=== PATIENT | male | born 1995 | race Caucasian/White ===

== ENCOUNTER 2017-11-01 22:20 | Emergency (ER) | payer SELFPAY ==
[2017-11-01] MEDS ORDERED: ALUM & MAG HYDROX-SIMETHICONE 30 ML, LIDOCAINE VISCOUS 2% 15 ML PO ONE ×2 (22:38)
[2017-11-01] MEDS ORDERED: LIDOCAINE HCL 2% (MOUTH-THROAT) 15 ML UD ONE (22:40)
[2017-11-01] MEDS ORDERED: ALUM & MAG HYDROX-SIMETHICONE 30 ML UD ONE (22:40)
--- NOTE | 2017-11-01 22:53 | RAD ---
EXAM DESCRIPTION: Chest,2 Views CLINICAL HISTORY: chest pain COMPARISON: None. FINDINGS: Two views of the chest are submitted. Cardiac silhouette appears normal. No focal parenchymal or pleural disease. No acute bony abnormality. There is no significant pulmonary vascular engorgement. IMPRESSION: No evidence of acute cardiopulmonary disease. Electronically signed by: Pietro Paulson 11/01/2017 10:52 PM [employer]
[2017-11-01] MEDS ORDERED: POTASSIUM CHLORIDE INJ 40 MEQ 40 MEQ in SODIUM CHLORIDE 0.9% 250ML 250 ML IVPB ONE (23:03)
[2017-11-01] MEDS ORDERED: POTASSIUM CHLORIDE ELIXIR 20 MEQ/15 ML UD PO ONE (23:03)
[2017-11-01] MEDS ORDERED: SODIUM CHLORIDE 0.9% 1000ML 1,000 ML IVS ONE (23:03)
[2017-11-01] MEDS ORDERED: ACETAMINOPHEN 325 MG TAB PO ONE (23:05)
[2017-11-01] MEDS ORDERED: OSELTAMIVIR 75 MG CAP PO ONE (23:05)
[2017-11-01] MEDS ORDERED: IBUPROFEN 200 MG TAB PO ONE (23:05)
[2017-11-01] MEDS ORDERED: SODIUM CHLORIDE 0.9% 250ML 250 ML ONE (23:08)
[2017-11-01] MEDS ORDERED: POTASSIUM CHLORIDE 40mEq 20ML VIAL ONE (23:08)
[2017-11-02 00:24] VITALS: TEMP 98.2
--- NOTE | 2017-11-02 05:16 | ED.PDOC ---
History of Present Illness - General Chief Complaint: Chest Pain/[place] Stated Complaint: chest pressure Time Seen by Provider: 11/01/17 22:32 Source: patient Exam Limitations: no limitations - History of Present Illness Initial Comments: the patient is a 42-year-old male presenting to the emergency room secondary to primarily a fever or chest pain. He feels like he is having central chest tightness and squeezing that is worse intermittently. He does have anterior chest wall discomfort to palpation. He is quite anxious. He has been diaphoretic. He has had a mild sore throat and a mild runny nose. Mild nausea but no vomiting. He has had some generalized myalgias. Flu is rampant in the community. Timing/Duration: 4-6 hours Severity: moderate Improving Factors: nothing Worsening Factors: nothing Associated Symptoms: chest pain, cough, fever/chills, loss of appetite, malaise , weakness Allergies/Adverse Reactions: Allergies NO KNOWN ALLERGY Allergy (Verified 11/01/17 22:38) Home Medications: Ambulatory Orders Oseltamivir Phosphate [Tamiflu] 75 mg PO DAILY #30 cap 11/02/17 Potassium Chloride Tab [Micro-K] 10 meq PO BID #10 tab 11/02/17 Review of Systems - Review of Systems Constitutional: States: chills, diaphoresis, fever, malaise EENTM: States: nose congestion, throat pain Respiratory: States: cough. Denies: short of breath, wheezing Cardiology: States: chest pain. Denies: edema, palpitations, syncope Gastrointestinal/Abdominal: States: nausea - mild Genitourinary: States: no symptoms reported Musculoskeletal: States: other - generalized myalgias Skin: States: no symptoms reported Neurological: States: headache - mild Endocrine: States: no symptoms reported All other Systems: No Change from Baseline Past Medical History (General) - Patient Medical History Hx Seizures: No Hx Asthma: Yes Hx Cardiac Disorders: No Hx Congestive Heart Failure: No Hx Hypertension: No Hx Diabetes: No Surgical History: other - Vaccination History Hx Tetanus, Diphtheria Vaccination: No Hx Influenza Vaccination: No Hx Pneumococcal Vaccination: No - Social History Hx Tobacco Use: Yes Hx Alcohol Use: Yes - occ Family Medical History - Family History Mother Living Status: Still Living Hx Family Hypertension: Yes Hx Cardiac Disease: Yes Physical Exam - Physical Exam General Appearance: Alert, No apparent distress, Other - diaphoretic Eye Exam: bilateral normal Ears, Nose, Throat: hearing grossly normal, nasal congestion, pharyngeal erythema Neck: full range of motion, supple Respiratory: lungs clear, normal breath sounds, no respiratory distress, no accessory muscle use Cardiovascular/Chest: normal peripheral pulses, regular rate, rhythm, no edema, tachycardia Peripheral Pulses: radial,right: 2+, radial,left: 2+ Gastrointestinal/Abdominal: non tender, soft Rectal Exam: deferred Back Exam: normal inspection, no CVA tenderness Extremity: normal range of motion, non-tender, normal inspection, no pedal edema , normal capillary refill Neurologic: health editor II-XII nml as tested, alert, normal mood/affect, oriented x 3 Skin Exam: diaphoresis Comments: Vital Signs - 8 hr 11/01/17 11/01/17 11/01/17 22:27 22:30 23:23 Temperature 98.9 F Pulse Rate 112 H 112 H 85 Pulse Rate [ 112 H 110 H 83 left] Respiratory 20 20 Rate Blood Pressure 144/89 115/75 [left] O2 Sat by Pulse 100 98 Oximetry 11/02/17 11/02/17 11/02/17 00:22 01:20 02:15 Temperature 98.2 F Pulse Rate 89 89 89 Pulse Rate [ 89 82 78 left] Respiratory 20 20 20 Rate Blood Pressure 106/64 122/65 129/69 [left] O2 Sat by Pulse 97 97 97 Oximetry 11/02/17 03:38 Temperature Pulse Rate 89 Pulse Rate [ 65 left] Respiratory 20 Rate Blood Pressure 122/70 [left] O2 Sat by Pulse 97 Oximetry Progress - Progress Progress: 11/02/17 05:18 the patient's 22-year-old male presenting to the emergency room primarily due to chest pain and also with multiple concomitant symptoms. He has tested positive for flu and he also has some significant hypokalemia. He has been started on Tamiflu and has received an IV and oral dose of potassium. His repeat potassium has gone from 2.8 up to 4.2. He is feeling better after the potassium in the IV fluids. He needs to keep himself well hydrated. He will be written for potassium chloride 10 mEq per day. He needs to be rechecked in 2-3 weeks. ER warnings were given for any significant worsening. He will be written for the Tamiflu for the flu. He should follow-up with his primary care doctor in 2-3 weeks for reevaluation if he is doing well, or return sooner if needed. - Results/Orders Results/Orders: 11/01/17 22:36 Telemetry .CONTINUOUS normal sinus rhythm Chest x-ray shows no acute pathology. No infiltrate. No cardiomegaly. the patient did test positive for flu 11/01/17 22:45 EKG STAT normal sinus rhythm at a rate of 96 bpm. Normal axis. No acute ST segment changes concerning for ischemia. Normal R-wave progression. Normal QT interval. Laboratory Results - last 24 hr 11/01/17 11/01/17 11/01/17 22:40 22:40 22:40 WBC 5.7 RBC 5.07 Hgb 13.6 L Hct 40.7 L MCV 80.3 MCH 26.8 L MCHC 33.3 RDW 15.0 H Plt Count 155 MPV 8.5 Absolute Neuts (auto) 4.20 Absolute Lymphs (auto) 0.90 L Absolute Monos (auto) 0.50 Absolute Eos (auto) 0.00 Absolute Basos (auto) 0.00 Neutrophils % 74.7 Lymphocytes % 15.6 L Monocytes % 9.3 H Eosinophils % 0.1 L Basophils % 0.3 D-Dimer, Quantitative < 230 Sodium 137 Potassium 2.8 L Chloride 101 Carbon Dioxide 24 Anion Gap 14.8 BUN 9 Creatinine 0.89 BUN/Creatinine Ratio 10.1 Random Glucose 69 L Serum Osmolality 270.9 L Calcium 8.9 Magnesium 1.8 Total Bilirubin 0.6 AST 18 ALT 13 Alkaline Phosphatase 67 Creatine Kinase 115 CK-MB (CK-2) 1.6 CK-MB (CK-2) % Not Reportable Troponin I < 0.02 B-Natriuretic Peptide 7.9 Serum Total Protein 8.7 H Albumin 4.0 Globulin 4.7 H Albumin/Globulin Ratio 0.9 L TSH 3.08 Group A Strep DNA 11/01/17 11/02/17 23:04 04:15 WBC RBC Hgb Hct MCV MCH MCHC RDW Plt Count MPV Absolute Neuts (auto) Absolute Lymphs (auto) Absolute Monos (auto) Absolute Eos (auto) Absolute Basos (auto) Neutrophils % Lymphocytes % Monocytes % Eosinophils % Basophils % D-Dimer, Quantitative Sodium Potassium 4.2 Chloride Carbon Dioxide Anion Gap BUN Creatinine BUN/Creatinine Ratio Random Glucose Serum Osmolality Calcium Magnesium Total Bilirubin AST ALT Alkaline Phosphatase Creatine Kinase 93 CK-MB (CK-2) 0.9 CK-MB (CK-2) % Not Reportable Troponin I < 0.02 B-Natriuretic Peptide Serum Total Protein Albumin Globulin Albumin/Globulin Ratio TSH Group A Strep DNA Negative Departure - Departure Clinical Impression: Hypokalemia, Influenza A Disposition: Discharge to Home or Self Care Condition: Fair Departure Forms: ED Discharge - Pt. Copy, Patient Portal Self Enrollment Instructions: DI for Hypokalemia, Influenza Diet: regular diet Activity: increase activity as tolerated Referrals: YOLANDA PELLETIER [Primary Care Provider] - 1-2 Weeks Prescriptions: Oseltamivir Phosphate [Tamiflu] 75 mg PO DAILY #30 cap Potassium Chloride Tab [Micro-K] 10 meq PO BID #10 tab Home Medications: Ambulatory Orders Oseltamivir Phosphate [Tamiflu] 75 mg PO DAILY #30 cap 11/02/17 Potassium Chloride Tab [Micro-K] 10 meq PO BID #10 tab 11/02/17 Additional Instructions: the patient's 22-year-old male presenting to the emergency room primarily due to chest pain and also with multiple concomitant symptoms. He has tested positive for flu and he also has some significant hypokalemia. He has been started on Tamiflu and has received an IV and oral dose of potassium. His repeat potassium has gone from 2.8 up to 4.2. He is feeling better after the potassium in the IV fluids. He needs to keep himself well hydrated. He will be written for potassium chloride 10 mEq per day. He needs to be rechecked in 2-3 weeks. ER warnings were given for any significant worsening. He will be written for the Tamiflu for the flu. He should follow-up with his primary care doctor in 2-3 weeks for reevaluation if he is doing well, or return sooner if needed.
[2017-11-02 05:34] VITALS: BP 125/65; O2SAT 99
== END 2017-11-02 05:37 | disposition home or self-care (01) ==
LOC: ER 22:20
DX: J10.1 Influenza due to other identified influenza virus with other respiratory manifestations (principal); E87.6 Hypokalemia; Z87.891 Personal history of nicotine dependence
CPT/HCPCS: 36415; 71046; 80053; 82550; 82553; 83735; 83880; 84132; 84443; 84484; 85025; 85379; 87070; 87502; 87651; 93005; J3480; J7030; J7050

== ENCOUNTER 2019-04-21 08:55 | Emergency (ER) | payer SELFPAY ==
[2019-04-21 09:04] VITALS: TEMP 97.9
--- NOTE | 2019-04-21 09:14 | ED.PDOC ---
History of Present Illness - General Chief Complaint: Abdominal Pain Stated Complaint: abdominal pain,vomiting Time Seen by Provider: 04/21/19 09:14 Information Source: patient Exam Limitations: no limitations - History of Present Illness Initial Comments: Roberto Chavez 23 y/o male came to ER brought by Family with squeezing abdominal pain early this AM;stated had started as one episode of N/V yesterday able to eat last night without incident and had solid BM early this am but woke up with squeezing lower abdominal pain this am denies hematuria ,dysuria,hematemesis,melena. Abdominal Pain Onset Location: suprapubic Pain Radiation: no radiation Quality: moderate, sharpness, steady Timing/Duration: 4-6 hours Improving Factors: nothing Worsening Factors: nothing Associated Symptoms: other - see hpi Review of Systems - Review of Systems Constitutional: States: no symptoms reported EENTM: States: no symptoms reported Respiratory: States: no symptoms reported Cardiology: States: no symptoms reported Gastrointestinal/Abdominal: States: see HPI Genitourinary: States: no symptoms reported All other Systems: Reviewed and Negative, No Change from Baseline Past Medical History (General) - Patient Medical History Hx Seizures: No Hx Asthma: Yes Hx Cardiac Disorders: No Hx Congestive Heart Failure: No Hx Hypertension: No Hx Thyroid Disease: No Hx Diabetes: No Hx Cancer: No Surgical History: other - dtorsion testicle - Vaccination History Hx Tetanus, Diphtheria Vaccination: No Hx Influenza Vaccination: Yes Hx Pneumococcal Vaccination: No - Social History Hx Tobacco Use: Yes Hx Alcohol Use: Yes - occ Family Medical History - Family History Mother Living Status: Still Living Hx Family Hypertension: Yes Hx Cardiac Disease: Yes Physical Exam - Physical Exam General Appearance: Alert, Comfortable, Frail Eyes, Ears, Nose, Throat Exam: normal ENT inspection, pharynx normal Neck: full range of motion, supple, normal inspection Respiratory: chest non-tender, no accessory muscle use, wheezing Cardiovascular/Chest: normal peripheral pulses, regular rate, rhythm, no murmur Peripheral Pulses: No deficit Gastrointestinal/Abdominal: soft, tenderness - lower abdomen no peritoneal signs Male Genitalia: normal genitalia, no hernia Back Exam: no CVA tenderness, no vertebral tenderness Extremity: non-tender, no pedal edema, no calf tenderness Neurologic: alert, oriented x 3 Skin Exam: normal color, warm/dry Lymphatic: no adenopathy Progress - Progress Progress: 04/21/19 09:47 Vital Signs - 8 hr 04/21/19 09:00 Temperature 97.9 F Pulse Rate [ 73 Left Brachial] Respiratory 18 Rate Blood Pressure 131/97 [Left Arm] O2 Sat by Pulse 100 Oximetry - Results/Orders Results/Orders: 04/21/19 09:47 Hold Metformin x 48Hrs [id number] Laboratory Results - last 24 hr 04/21/19 04/21/19 09:24 09:55 WBC 7.8 RBC 4.97 Hgb 14.3 Hct 42.8 MCV 86.0 MCH 28.7 MCHC 33.4 RDW 13.8 Plt Count 181 MPV 8.6 Absolute Neuts (auto) 6.40 Absolute Lymphs (auto) 0.90 L Absolute Monos (auto) 0.40 Absolute Eos (auto) 0.00 Absolute Basos (auto) 0.00 Neutrophils % 81.5 H Lymphocytes % 12.0 L Monocytes % 5.7 Eosinophils % 0.5 L Basophils % 0.3 PT 9.9 INR 0.99 PTT (SP) 25.9 Sodium 137 Potassium 3.4 L Chloride 105 Carbon Dioxide 22 Anion Gap 13.4 BUN 8 Creatinine 0.79 BUN/Creatinine Ratio 10.1 Random Glucose 120 H Serum Osmolality 273.3 L Calcium 9.0 Magnesium 2.0 Total Bilirubin 0.5 Direct Bilirubin < 0.1 Indirect Bilirubin 0.4 AST 16 ALT 11 Alkaline Phosphatase 76 Creatine Kinase 118 CK-MB (CK-2) 0.9 CK-MB (CK-2) % Not Reportable Troponin I < 0.02 Serum Total Protein 8.0 Albumin 3.7 Lipase 22 Urine Color Yellow Urine Appearance Clear Urine pH 7.0 Ur Specific [place] 1.015 Urine Protein Negative Urine Glucose (UA) Negative Urine Ketones Negative Urine Blood Negative Urine Nitrite Negative Urine Bilirubin Negative Urine Urobilinogen 0.2 Ur Leukocyte Esterase Negative Urine RBC 0 Urine WBC 0 Ur Epithelial Cells 0 Urine Bacteria 0 Discuss all test result with patient;NO acute abnormalities noted on his blood work and CT-Scan abdomen;Advised to sign up with primary MD - EKG/XRAY/CT CT Ordered: Yes - abd/p-no acute abnormalities noted Departure - Departure Clinical Impression: Abdominal pain Qualifiers: Abdominal location: lower abdomen, unspecified Qualified Code(s): R10.30 - Lower abdominal pain, unspecified Time of Disposition: 11:03 Disposition: Discharge to Home or Self Care Condition: Good Departure Forms: ED Discharge - Pt. Copy, Patient Portal Self Enrollment Instructions: DI for Abdominal Pain-Adult Diet: bland diet, other - AVOID GREASY SPICY FOODS UNTIL BETTER Prescriptions: Tramadol HCl 50 mg PO Q4HR PRN #20 tab PRN Reason: Pain Dicyclomine HCl [Bentyl] 20 mg PO TID PRN #20 tab PRN Reason: Abdominal Cramping Home Medications: Ambulatory Orders Dicyclomine HCl [Bentyl] 20 mg PO TID PRN #20 tab 04/21/19 Tramadol HCl 50 mg PO Q4HR PRN #20 tab 04/21/19 Additional Instructions: Need to sign up with primary Md [id number] to ER as needed
[2019-04-21] MEDS ORDERED: PROMETHAZINE HCL INJ 25 MG/ML VIAL IM ONE (09:15)
[2019-04-21] MEDS ORDERED: MORPHINE SULFATE INJ 10 MG/ML VIAL IV ONE ×2 (09:15→11:08)
[2019-04-21] MEDS ORDERED: LACTATED RINGERS 1,000 ML IVS ONE (09:15)
[2019-04-21] MEDS ORDERED: raNITIdine HCL INJ 50 MG in SODIUM CHLORIDE 0.9% 50ML 50 ML IVPB ONE (09:16)
[2019-04-21] MEDS ORDERED: raNITIdine HCL INJ 25 MG/ML VIAL ONE (09:20)
[2019-04-21] MEDS ORDERED: SODIUM CHLORIDE 0.9% 50ML 50 ML ONE (09:21)
--- NOTE | 2019-04-21 10:47 | CT ---
EXAM: CT Abdomen and Pelvis With Intravenous Contrast CLINICAL HISTORY: 23 years old and is Male; pain lower abdomen TECHNIQUE: Axial computed tomography images of the abdomen and pelvis with intravenous contrast. Sagittal and coronal reformatted images were created and reviewed. This CT exam was performed using one or more of the following dose reduction techniques: automated exposure control, adjustment of the mA and/or kV according to patient size, and/or use of iterative reconstruction technique. COMPARISON: No relevant prior studies available. FINDINGS: Limitations: None. Lung bases: Unremarkable. No mass. No consolidation. ABDOMEN: Liver: Unremarkable. No mass. Gallbladder and bile ducts: Unremarkable. No calcified stones. No ductal dilation. Pancreas: Unremarkable. No mass. No ductal dilation. Spleen: Unremarkable. No splenomegaly. Adrenals: Unremarkable. No mass. Kidneys and ureters: Unremarkable. No solid mass. No hydronephrosis. Stomach and bowel: Unremarkable. No obstruction. No mucosal thickening. PELVIS: Appendix: No findings to suggest acute appendicitis. Bladder: Unremarkable. No mass. Reproductive: Unremarkable as visualized. ABDOMEN and PELVIS: Intraperitoneal space: Unremarkable. No free air. No significant fluid collection. Bones/joints: No acute fracture. No dislocation. Soft tissues: Unremarkable. Vasculature: Unremarkable. No abdominal aortic aneurysm. Lymph nodes: Unremarkable. No enlarged lymph nodes. IMPRESSION: No acute findings. Electronically signed by: Christine Stewart MD 04/21/2019 10:45 AM CDT
[2019-04-21] MEDS ORDERED: SUCRALFATE 1 GM/10 ML 1 GM UD PO ONE (11:13)
[2019-04-21 11:57] VITALS: BP 133/80; O2SAT 98
== END 2019-04-21 11:56 | disposition home or self-care (01) ==
LOC: ER 08:55
DX: R10.30 Lower abdominal pain, unspecified (principal); R11.2 Nausea with vomiting, unspecified; J45.909 Unspecified asthma, uncomplicated; Z87.891 Personal history of nicotine dependence
CPT/HCPCS: 36415; 74177; 80048; 80076; 80307; 81001; 82550; 82553; 83690; 84484; 85025; 85610; 85730; A4216; J2270; J2550; J2780; J7120